=== PATIENT | male | born 1995 | race Caucasian/White ===

== ENCOUNTER 2018-05-30 11:08 | Emergency (ER) | payer OTHER ==
[~2018-05-30] VITALS: Ht 167.6 cm; Wt 70.4 kg
[2018-05-30 11:14] VITALS: BP 146/89
--- NOTE | 2018-05-30 11:19 | NUR ---
PATIENT AMBULATED TO ER BED 12
--- NOTE | 2018-05-30 11:28 | NUR ---
AAO X 4 22 M WITH C/O SORE ON BOTTOM X2 WEEKS, WOKE UP THIS MORNING WITH COUGH AND RED SPOTS ON TONGUE. PT REPORTS TINGLING PAIN ON TONGUE AT 5/10. PT DENIES N/V/D OR FEVER. HX:NONE RX:NONE
--- NOTE | 2018-05-30 11:39 | NUR ---
DR GASTON EVALUATING AAO X4 PT AT BEDSIDE
--- NOTE | 2018-05-30 11:56 | NUR ---
STREP SAMPLE COLLECTED AND GIVEN TO HOME DEMONSTRATION AGENT DUNCAN
[2018-05-30 13:03] VITALS: BP 139/84
--- NOTE | 2018-05-30 13:03 | NUR ---
Patient discharged with v/s stable. Written and verbal after care instructions given and explained. Patient alert, oriented and verbalized understanding of instructions. Ambulatory with steady gait. All questions addressed prior to discharge. ID band removed. Patient advised to follow up with PMD. Rx of Valtrex given. Patient educated on indication of medication including possible reaction and side effects. Opportunity to ask questions provided and answered.
== END 2018-05-30 13:03 | disposition home or self-care (01) ==
LOC: MED 11:08
DX: B00.1 Herpesviral vesicular dermatitis (principal)
CPT/HCPCS: 87081; 99283

== ENCOUNTER 2021-07-15 15:49 | Emergency (ER) | payer OTHER ==
[~2021-07-15] VITALS: Ht 167.6 cm; Wt 79.4 kg
[2021-07-15 15:51] VITALS: BP 129/84
--- NOTE | 2021-07-15 15:59 | NUR ---
PT W/C ASSISTED TO BED 2.
--- NOTE | 2021-07-15 16:02 | NUR ---
pt wheelchair assisted to xray
[2021-07-15] MEDS ORDERED: KETOROLAC 30 MG/ML VIAL IM ONE (17:00)
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
[2021-07-15] MEDS ORDERED: NAPR-54 PO (17:04)
[2021-07-15 17:33] VITALS: BP 129/84
--- NOTE | 2021-07-15 17:33 | NUR ---
Patient discharged with v/s stable. Written and verbal after care instructions given FOR ANKLE PAIN AND CONTUSION and explained. Patient alert, oriented and verbalized understanding of instructions. Ambulatory with steady gait. All questions addressed prior to discharge. ID band removed. Patient advised to follow up with PMD. Rx of NAPROXEN given. Patient educated on indication of medication including possible reaction and side effects. Opportunity to ask questions provided and answered.
== END 2021-07-15 17:33 | disposition home or self-care (01) ==
LOC: MED 15:49
DX: S93.402A Sprain of unspecified ligament of left ankle, initial encounter (principal); V09.9XXA Pedestrian injured in unspecified transport accident, initial encounter; Y93.89 Activity, other specified; Y92.89 Other specified places as the place of occurrence of the external cause; Y99.8 Other external cause status
CPT/HCPCS: 73610; 73630; 99284; Q0092; J1885